=== PATIENT | female | born 1970 | race Caucasian/White ===

== ENCOUNTER 2016-11-29 17:01 | Emergency (ER) | payer BC ==
[~2016-11-29] VITALS: Ht 160 cm; Wt 62.6 kg
[2016-11-29] MEDS ORDERED: SODIUM CHLORIDE FLUSH 10ML SYR IVF ONE (17:30)
[2016-11-29] MEDS ORDERED: LISI5TAB7 PO (17:35)
[2016-11-29] MEDS ORDERED: ACETAMINOPHEN 500 MG TABLET ONE (17:47)
[2016-11-29] MEDS ORDERED: ACETAMINOPHEN 500 MG TABLET PO ONE (18:00)
[2016-11-29 18:02] LABS: PATH.CAST-FLAG NOT PRESENT; SPERM-FLAG NOT PRESENT; SRC-FLAG NOT PRESENT; XTAL-FLAG NOT PRESENT; YLC-FLAG NOT PRESENT
[2016-11-29 18:06] LABS: HCG UR OBC PASS
[2016-11-29 18:13] LABS: HEMOGLOBIN 12.9 g/dL (11.7-16.4)
[2016-11-29 18:24] LABS: BLOOD UREA NITROGEN 8 mg/dL (7-18)
[2016-11-29 19:27] VITALS: BP 118/77
== END 2016-11-29 19:30 | disposition home or self-care (01) ==
LOC: ED 19:24
DX: R51 Headache (principal); R50.9 Fever, unspecified; I10 Essential (primary) hypertension
CPT/HCPCS: 36415; 71010; 80048; 81001; 81025; 82040; 83605; 84145; 85025; 85610; 87040; 93005